=== PATIENT | female | born 1975 | race Caucasian/White ===

== ENCOUNTER 2024-04-19 06:00 | Inpatient (IN) | payer OTHER ==
[2024-04-17 11:01] LABS: HEMATOCRIT 38.2 % (36.0-45.00); MEAN CELL VOLUME 93.4 fL (80.00-100.00); MEAN CORPUSCULAR HEMOGLOBIN 31.7 pg (27.00-32.0); MEAN CORPUSCULAR HGB CONC 33.9 g/dl (32.0-36.0); PLATELET COUNT 313 K/uL (150-450); RED BLOOD COUNT 4.09 M/uL (4.00-6.00)
[2024-04-17 11:33] LABS: INR 1.03; PARTIAL THROMBOPLASTIN TIME 33.9 SECONDS (22.0-34.0); PROTHROMBIN TIME 11.2 SECONDS (9.0-11.5)
[2024-04-17 11:46] LABS: ALBUMIN 3.8 gm/dL (3.4-5.0); BILIRUBIN TOTAL 0.45 mg/dL (0.3-1.2); CALCIUM 9.1 mg/dL (8.5-10.1); CREATININE SERUM 0.73 mg/dL (0.55-1.02); GFR 85.09; GLOBULINA 3.2 G/DL (2.4-3.5); POTASSIUM 4.18 mEq/L (3.5-5.1)
[~2024-04-19] VITALS: Ht 165.1 cm; Wt 79.8 kg
[2024-04-19] MEDS ORDERED: POVIDONE-IODINE 118 ML BOTT TOP ONE (14:00)
[2024-04-19] MEDS ORDERED: ONDANSETRON HCL 2 MG/ML VIAL IV PRN (16:30)
[2024-04-19] MEDS ORDERED: RINGERS SOLUTION,LACTATED 1,000 ML IV SCH (16:30)
[2024-04-19] MEDS ORDERED: MORPHINE SULFATE 4 MG/ML CARTRIDGE IV PRN (16:30)
[2024-04-19] MEDS ORDERED: MORPHINE SULFATE 4 MG/ML VIAL IV ONE ×2 (16:50→18:35)
[2024-04-19 20:41] VITALS: BP 118/70
[2024-04-20] VITALS: BP 124/81
[2024-04-20 07:34] VITALS: BP 118/70
[2024-04-20 08:44] VITALS: BP 96/63
[2024-04-20] MEDS ORDERED: IBUprofen 400 MG TABLET PO SCH (09:00)
[2024-04-20] MEDS ORDERED: ENOXAPARIN SODIUM 30 MG/0.3 ML SYRINGE SUBCUTANEO SCH (09:00)
[2024-04-20 10:51] LABS: HEMATOCRIT 29.7 % (36.0-45.00); MEAN CELL VOLUME 96.1 fL (80.00-100.00); MEAN CORPUSCULAR HGB CONC 33.2 g/dl (32.0-36.0); PLATELET COUNT 514 K/uL (150-450); RED BLOOD COUNT 3.09 M/uL (4.00-6.00); RED CELL DISTRIBUTION WIDTH 12.5 % (11.5-14.5)
[2024-04-20 10:52] LABS: HEMOGLOBIN 9.9 g/dL (12.0-15.00)
[2024-04-20 16:00] VITALS: BP 118/63
[2024-04-20] MEDS ORDERED: SIMETHICONE 125 MG CAPSULE PO SCH (22:03)
[2024-04-21 01:23] VITALS: BP 102/62
[2024-04-21] MEDS ORDERED: OxyCODONE HCL 5 MG TABLET (ROXICODONE) PO PRN (06:00)
[2024-04-21] MEDS ORDERED: IRON/V.C/V.B12/FOLIC A/VIT. E 1 CAPL CAPLET PO SCH (09:00)
[2024-04-21] MEDS ORDERED: ENOXAPARIN SODIUM 40 MG/0.4 ML SYRINGE SUBCUTANEO SCH (09:00)
[2024-04-21] MEDS ORDERED: IBUprofen 400 MG TABLET PO SCH (09:00)
[2024-04-21 09:02] VITALS: BP 110/57
== END 2024-04-21 10:57 | disposition home or self-care (01) | DRG 743 ==
LOC: CIR.AMB 06:00 → OB/GYN 17:03
PROVIDERS: ADMIT Obstetrics & Gynecology; ATTEND Obstetrics & Gynecology
PROC: 0UB58ZZ Excision of Right Fallopian Tube, Via Natural or Artificial Opening Endoscopic (ICD-10-PCS; 2024-04-19)
PROC: 0UB08ZZ Excision of Right Ovary, Via Natural or Artificial Opening Endoscopic (ICD-10-PCS; 2024-04-19)
PROC: 0UB98ZZ Excision of Uterus, Via Natural or Artificial Opening Endoscopic (ICD-10-PCS; principal; 2024-04-19 08:30)
DX: D25.0 Submucous leiomyoma of uterus (principal); N80.03 Adenomyosis of the uterus; Z20.822 Contact with and (suspected) exposure to COVID-19; N80.201 Endometriosis of right fallopian tube, unspecified depth; N80.101 Endometriosis of right ovary, unspecified depth